=== PATIENT | male | born 1950 | race African-American/Black ===

== ENCOUNTER 2017-03-02 21:10 | Inpatient (IN) | payer MEDICARE, MEDICAID ==
[~2017-03-02] VITALS: Ht 139.7 cm; Wt 101.9 kg
[2017-03-02 22:29] LABS: BASOPHILS 0.3 % (0-2); EOSINOPHILS 2.2 % (0-7); HEMATOCRIT 34.8 % (42.0-54.0); HEMOGLOBIN 11.2 g/dL (13.5-17.5); IMMATURE GRANULOCYTES 0.7 % (0-5); LYMPHOCYTES 12.9 % (15-50); MCH 27.9 pg (26.0-34.0); MCHC 32.2 g/dL (31.0-37.0); MCV 86.6 fL (80.0-100.0); MEAN PLATELET VOLUME 10.8 fL (7.4-10.4); NEUTROPHILS 77.9 % (40-80); PLATELET COUNT 295 10x3/uL (130-400); RBC 4.02 10x6/uL (4.20-6.10); RDW 16.7 % (11.5-14.5); WBC 11.1 10x3/uL (4.8-10.8)
[2017-03-02 22:42] LABS: ALBUMIN 2.8 g/dL (3.4-5.0); ANION GAP 16.7 mmol/L (8-16); BILIRUBIN - TOTAL 0.7 mg/dL (0.2-1.3); CALCIUM 8.7 mg/dL (8.5-10.1); CARBON DIOXIDE 26.7 mmol/L (21.0-32.0); CREATININE - SERUM 4.4 mg/dL (0.6-1.3); POTASSIUM - SERUM 3.4 mmol/L (3.5-5.1); PROTEIN - SERUM 7.3 g/dL (6.4-8.2)
[2017-03-03] VITALS (44 sets, daily range): BP systolic 70–114; BP diastolic 40–76; Ht 139.7 cm; Wt 101.9 kg
--- NOTE | 2017-03-03 03:30 | NUR ---
REASSESSMENT COMPLETE PER FLOW SHEET. VSS. NO NEW CHANGES LAB AT BEDSIDE PT REFUSES. WILL CONTINUE TO MONITOR
[2017-03-03] MEDS ORDERED: REMERON15 MG PO (04:45)
[2017-03-03] MEDS ORDERED: MAG-OX 400 MG400 MG PO (04:46)
[2017-03-03] MEDS ORDERED: MIDODRINE HCL10 MG PO (04:48)
[2017-03-03] MEDS ORDERED: NEPHRO-VITE RX1 TAB PO (04:49)
[2017-03-03] MEDS ORDERED: COMBIGAN OPHT DR5 ML EACH EYE (04:50)
[2017-03-03] MEDS ORDERED: PRED FORTE5 ML RIGHT EYE (04:50)
[2017-03-03] MEDS ORDERED: GABAPENTIN100 MG PO (04:52)
[2017-03-03] MEDS ORDERED: LEVOTHYROXINE100 MCG PO (04:53)
[2017-03-03] MEDS ORDERED: BAYER CHEWABLE81 MG PO (04:54)
[2017-03-03] MEDS ORDERED: PRED FORTE5 ML EACH EYE (04:56)
[2017-03-03] MEDS ORDERED: PROTONIX40 MG PO (04:57)
[2017-03-03] MEDS ORDERED: ASCORBIC ACID500 MG PO (04:58)
[2017-03-03] MEDS ORDERED: LOPRESSOR25 MG PO (04:59)
[2017-03-03] MEDS ORDERED: COLACE100 MG PO (05:01)
[2017-03-03] MEDS ORDERED: ATARAX 25 MG TA25 MG PO (05:01)
[2017-03-03] MEDS ORDERED: ZOFRAN4 MG PO (05:02)
[2017-03-03] MEDS ORDERED: BANOPHEN25 MG PO (05:04)
[2017-03-03] MEDS ORDERED: IMODIUM2 MG PO (05:04)
[2017-03-03] MEDS ORDERED: NORCO 7.5/325 T1 TA1 PO (05:05)
[2017-03-03] MEDS ORDERED: ACETAMINOPHEN325 MG PO (05:06)
[2017-03-03 06:09] LABS: HEMATOCRIT 32.2 % (42.0-54.0); HEMOGLOBIN 10.5 g/dL (13.5-17.5); MCH 27.9 pg (26.0-34.0); MCHC 32.6 g/dL (31.0-37.0); MCV 85.4 fL (80.0-100.0); MEAN PLATELET VOLUME 10.3 fL (7.4-10.4); NEUTROPHILS 84.8 % (40-80); PLATELET COUNT 259 10x3/uL (130-400); RBC 3.77 10x6/uL (4.20-6.10); RDW 17.5 % (11.5-14.5); WBC 11.5 10x3/uL (4.8-10.8)
[2017-03-03 06:25] LABS: ANION GAP 21.3 mmol/L (8-16); CALCIUM 8.1 mg/dL (8.5-10.1); CREATININE - SERUM 4.5 mg/dL (0.6-1.3); POTASSIUM - SERUM 3.3 mmol/L (3.5-5.1)
--- NOTE | 2017-03-03 14:49 | NUR ---
DIALYSIS TX COMPLETE. PT AAO, VERBAL. 3HR RUN ONLY GOT 711CC OFF PT EXTREMELY HYPOTENSIVE. 2 ALBUMIN GIVEN DURING TX AND HIGHEST B/P 89/57, HR 69. NO COMPLAINTS.
--- NOTE | 2017-03-03 19:00 | NUR ---
1900: Pt repositioned for comfort at this time. Pt left arm and right lower extrem (BKA) elevated off bed with pillow supports.
--- NOTE | 2017-03-03 20:30 | NUR ---
2030: Pt SBP 70-80 with MAP <60mmHG. Repositioned NIBP at this time. Pt state that he has pain in his right lower extrem. Provided PRN RX as per EMAR.
--- NOTE | 2017-03-03 21:00 | NUR ---
2100: Pt SBP cont's decreased at this time. Levophed gtt restarted and will titrate as per orders.
--- NOTE | 2017-03-03 21:30 | NUR ---
2129: Pt nauseated and vomitted approx 200cc of clear liquid with food particles. Oral care and complete bed and linen change done at this time. Pt states he feels a little better afterwards. Pt remains Paced on CM 70's with SBP 80's. Levophed gtt cont's as per IV gtts.
--- NOTE | 2017-03-03 22:45 | NUR ---
2245: Pt requested to move at this time. Pt repositioned for comfort. Pt has small brown semi-solid BM. Pt linen changed and again repositioned for comfort at this time.
[2017-03-04] VITALS (70 sets, daily range): BP systolic 71–151; BP diastolic 47–87
--- NOTE | 2017-03-04 02:00 | NUR ---
0200: Pt resting with eyes closed at this itme. Pt remains Paced on CM with SBP 80-90, MAP >60 at this time with Levophed as per IV gtts.
--- NOTE | 2017-03-04 03:40 | NUR ---
0340: Pt repositioned for comfort with right stump off bed with pillow support as per request. Pt remains on Levophed gtt at 5 mcg's.
[2017-03-04 03:47] LABS: BASOPHILS 0.1 % (0-2); EOSINOPHILS 0.1 % (0-7); HEMATOCRIT 30.8 % (42.0-54.0); IMMATURE GRANULOCYTES 1.6 % (0-5); LYMPHOCYTES 9.6 % (15-50); MCH 28.1 pg (26.0-34.0); MCHC 32.5 g/dL (31.0-37.0); MCV 86.5 fL (80.0-100.0); MEAN PLATELET VOLUME 10.6 fL (7.4-10.4); MONOCYTES 7.3 % (2-11); NEUTROPHILS 81.3 % (40-80); PLATELET COUNT 293 10x3/uL (130-400); RBC 3.56 10x6/uL (4.20-6.10); RDW 16.7 % (11.5-14.5); WBC 14.5 10x3/uL (4.8-10.8)
[2017-03-04 03:57] LABS: ANION GAP 22.5 mmol/L (8-16); CALCIUM 8.4 mg/dL (8.5-10.1); CARBON DIOXIDE 22.1 mmol/L (21.0-32.0); CREATININE - SERUM 4.1 mg/dL (0.6-1.3); POTASSIUM - SERUM 3.6 mmol/L (3.5-5.1)
--- NOTE | 2017-03-04 20:00 | NUR ---
2000: Pt resting on right side. Pt is blind, pt oriented to person, place, and time. Pt denies pain, but did assist with elevating right BKA stump with pillow support for comfort. Pt S1S2 regular showing Paced on CM 70's. SBP 70-80 mmHG. Continue to titrate Levophed gtt as per orders. BS hypoactive x4 and ABD feels tight to touch and distended. Pt denies nausea or vomitting at this time, but reports a decreased appetite. Pt right arm fistula with dressing intact. No bleeding or oozing seen.
--- NOTE | 2017-03-04 22:45 | NUR ---
2245: Pt c/o nausea at this time. No vommitting. Pt HOB raised to 45 degrees. Provided patient with emesis bag and cool cloth to forehead.
--- NOTE | 2017-03-04 23:00 | NUR ---
2300: Pt infusion pump continues to alarm with occulusion to left IJ IV. IV easy to flush and remains patent with no leakage detected. New IV lines and connections completed at this time. Left neck IV redressed at this time and secured. Pt remains on Levophed and NS as per IV gtts.
[2017-03-05] VITALS (38 sets, daily range): BP systolic 78–108; BP diastolic 48–75
[2017-03-05 05:37] LABS: BASOPHILS 0.3 % (0-2); EOSINOPHILS 1.2 % (0-7); HEMATOCRIT 31.3 % (42.0-54.0); HEMOGLOBIN 10.2 g/dL (13.5-17.5); LYMPHOCYTES 14.7 % (15-50); MCH 27.8 pg (26.0-34.0); MCHC 32.6 g/dL (31.0-37.0); MCV 85.3 fL (80.0-100.0); MEAN PLATELET VOLUME 10.8 fL (7.4-10.4); MONOCYTES 19.6 % (2-11); NEUTROPHILS 63.2 % (40-80); RBC 3.67 10x6/uL (4.20-6.10); RDW 16.8 % (11.5-14.5); WBC 11.2 10x3/uL (4.8-10.8)
[2017-03-05 05:44] LABS: PLATELET COUNT 223 10x3/uL (130-400)
--- NOTE | 2017-03-05 06:00 | NUR ---
0600: Pt with small rob-solid BM. Complete bath and linen change done at this time. Pt repositioned for comofort. Pt buttocks with small red area. Butt cream applied. Pt right stump on pillow support. Pt remains Paced on CM with SBP 90's. Levophed remains off at this time.
[2017-03-05 06:04] LABS: ANION GAP 18.5 mmol/L (8-16); CALCIUM 8.6 mg/dL (8.5-10.1); CARBON DIOXIDE 23.8 mmol/L (21.0-32.0); CREATININE - SERUM 4.6 mg/dL (0.6-1.3); POTASSIUM - SERUM 3.3 mmol/L (3.5-5.1); VANCOMYCIN - RANDOM 15.6 ug/mL (10.0-20.0)
--- NOTE | 2017-03-05 19:41 | NUR ---
REPORT RECIEVED. ASSESSMENT COMPLETE PER FLOW SHEET. VSS. PT SLEEPING COMFORTABLY. WILL CONTINUE TO MONITOR
--- NOTE | 2017-03-05 21:10 | NUR ---
MEDS ADM WIHTOUT DIFFICULTY. COMPLETE BB LINEN CHANGE ADM. NEEDS MET. VSS. WILL CONTINUE TO MONITOR
--- NOTE | 2017-03-05 23:36 | NUR ---
REASSESSMENT COMPLETE PER FLOW SHEET. VSS. NO NEW CHNAGES. WILL CONTINUE TO MONITOR
[2017-03-06] VITALS (62 sets, daily range): BP systolic 70–118; BP diastolic 33–84
--- NOTE | 2017-03-06 01:10 | NUR ---
PT RESTING AT THIS TIME, NO NEEDS NOTED, VSS, CALL LIGHT IN REACH
--- NOTE | 2017-03-06 03:15 | NUR ---
REASSESSMENT COMPLETE, NO CHANGES NOTED, PT RESTING COMFORTABLY AT THIS TIME, NO NEEDS NOTED, WILL CON'T TO MONITOR
[2017-03-06 04:17] LABS: BASOPHILS 0.2 % (0-2); EOSINOPHILS 0.9 % (0-7); HEMATOCRIT 32.5 % (42.0-54.0); HEMOGLOBIN 10.8 g/dL (13.5-17.5); IMMATURE GRANULOCYTES 1.4 % (0-5); LYMPHOCYTES 11.4 % (15-50); MCH 28.4 pg (26.0-34.0); MCHC 33.2 g/dL (31.0-37.0); MCV 85.5 fL (80.0-100.0); MEAN PLATELET VOLUME 10.6 fL (7.4-10.4); MONOCYTES 17.3 % (2-11); NEUTROPHILS 68.8 % (40-80); PLATELET COUNT 235 10x3/uL (130-400); RDW 16.8 % (11.5-14.5)
[2017-03-06 04:22] LABS: WBC 14.8 10x3/uL (4.8-10.8)
[2017-03-06 04:54] LABS: ANION GAP 22.7 mmol/L (8-16); CALCIUM 8.4 mg/dL (8.5-10.1); CARBON DIOXIDE 20.2 mmol/L (21.0-32.0); CREATININE - SERUM 5.3 mg/dL (0.6-1.3); VANCOMYCIN - RANDOM 17.5 ug/mL (10.0-20.0)
[2017-03-06 04:55] LABS: POTASSIUM - SERUM 3.9 mmol/L (3.5-5.1)
--- NOTE | 2017-03-06 05:15 | NUR ---
LARGE BM AT THIS TIME, PARTIAL LINEN CHANGE
--- NOTE | 2017-03-06 07:00 | NUR ---
REPORT RECIEVED FROM OFF GOING NURSE. SEE ASSESSMENT IN FLOW SHEET. PT BLIND. ABLE TO COLLOW COMMANDS BUT CONFUSED. RIGHT BKA AND L AKA NOTED. FEMORAL PULSES PALPABLE. VSS. BREATHING SHALLOW BUT NORMAL. CALL LIGHT IN REACH. WILL CONT POC
--- NOTE | 2017-03-06 10:06 | NUR ---
Nutrition follow-up: Diet: Renal ADA consistent CHO PO intake 25-50% of meals Labs reviewed Wt: 219# +BM Will provide food choices with selective menus and honor food preferences within diet restrictions. RDN following.
--- NOTE | 2017-03-06 10:36 | NUR ---
LEVOPHED STARTED PER ORDRES FOR BP OF 67/41.
--- NOTE | 2017-03-06 10:39 | NUR ---
* Is the patient Alert and Oriented? Yes 0 * Preadmission Environment Marketing Automation Manager [facility] 0 * Facility Name [facility] 0 * ADLs Partial Dependent 0 * Partial ADLs (Assistance needed) Ambulation Bathing Dressing Medication Management Toileting Transfers 0 * Equipment Hospital Bed Wheelchair 0 * Additional services required to return to the preadmission environment? No 0 * Can the patient safely return to the preadmission environment? Yes 0 * Has this patient been hospitalized within the prior 30 days at any hospital? No Patient Name: MARITO THORNTON Admission Status: ER Accout number: [id number] Admission Date: 03-02-2017 : 1950 Admission Diagnosis:PNEUMONIA, UNSPECIFIED ORGANISM Attending: MAGGI KEYS Current LOS: 4 Planned Disposition: Nursing Facility [facility] Primary Insurance: MEDICARE A & B Discharge Planning Comments: Patient is a oil heaterman care resident at [facility] in [place]. He primarily uses a Erika Chair, but is able to sit up in a wheel chair. He goes to dialysis at [facility] in [place] on MWF. He requires assistance with all ADL's. Spoke with Lorraine at facility - she states patient will likely return to a oil heaterman care bed - she states patient has a hx of not being compliant with physical therapy. CM will follow & assist as needed. Head Of Measurement & Insights: Payton Gomez
--- NOTE | 2017-03-06 10:52 | NUR ---
LEVOPHED INCREASE PER ORDRES. CURRENTLY AT 70/39 AT 3MCG/KG/MIN.
--- NOTE | 2017-03-06 11:45 | NUR ---
AT BED SIDE. SHE FEED PT HIS LUNCH. HE ATE APPROXIMETLY 50% OF MEAL. NO S/SX OF DISTRESS/DISCOMFORT NOTED. VSS. REMAINS ON LEVOPHED. PT REPOSITIONED WILL CONT POC.
--- NOTE | 2017-03-06 13:30 | NUR ---
PT HAD MEDIUM BM. LOOSE AND SLIGHTY ORANGE IN COLOR. PERICARE PREFORMED AND NEW LINES TO BED. BUTTPASTE APPLIED. REPSOSTIONED FOR COMFORT. CALL LIGHT IN REACH. WILL CONT POC.
--- NOTE | 2017-03-06 15:00 | NUR ---
ME REMAINS RESTING WITH EYES CLOSED WITH 0 S/SX OF DISTRESS/DISCOMFORT NOTED. BREATHING NORMAL AND UNLABORED. VSS. REMAINS ON LEVOPHED. CALL LIGHT IN REACH. WILL CONT POC
--- NOTE | 2017-03-06 16:45 | NUR ---
ASSISTED PT WITH HIS MEALS. SPOON FEED BITES. ATE APPROXIMETLY 30%. STATED THAT HE WASNT HUNGRY. WILL CONT POC.
--- NOTE | 2017-03-06 18:45 | NUR ---
REPORT GIVEN TO ONCOMING RN. VSS. BREATHING NORMAL AND UNLABORED. WILL CONT POC
--- NOTE | 2017-03-06 19:15 | NUR ---
REPORT RECIEVED, SHIFT ASSESSMENT COMPLETE, PT IS ALERT AND ORIENTED, ON RA WITH 97% O2 SAT, PATENT RIGHT FISTULA HD IN PROGRESS, S1S2, PACEMAKER NOTED, ABODMEN IS SOFT AND ROUND WITH ACTIVE BS, PT ANURIC, B/L LOWER AMPUTATION, DENIES ANY NEEDS OR WANTS, CALL LIGHT IN REACH, WILL CON'T TO MONITOR
--- NOTE | 2017-03-06 21:00 | NUR ---
HS STILL IN PROGRESS, NO NEEDS NOTED, WILL CON'T TO MONITOR
--- NOTE | 2017-03-06 22:30 | NUR ---
HD COMPLETE, 3L REMOVED, WILL CON'T TO MONITOR
--- NOTE | 2017-03-06 23:05 | NUR ---
REASSESSMENT COMPLETE, NO CHANGES NOTED, REPOSITIONED FOR COMFORT, WILL CON'T TO MONITOR
[2017-03-07] VITALS (26 sets, daily range): BP systolic 82–115; BP diastolic 51–71
--- NOTE | 2017-03-07 01:15 | NUR ---
REPOSITIONED FOR COMFORT, NO OTHER NEEDS NOTED, WILL CON'T TO MONITOR
--- NOTE | 2017-03-07 02:00 | NUR ---
LEVOPHED OFF AT THIS TIME,
--- NOTE | 2017-03-07 03:15 | NUR ---
REASSESSMENT COMPLETE, NO CHANGES NOTED, PT RESTING AT THIS TIME, WILL CON'T TO MONITOR
--- NOTE | 2017-03-07 05:15 | NUR ---
REPOSITIONED FOR COMFORT, VSS, CALL LIGHT IN REACH
--- NOTE | 2017-03-07 07:00 | NUR ---
REPORT RECEIVED FROM OFF GOING RN. SEE ASSESSMENT IN FLOW SHEET. PT OFF PRESSORS. VSS. PT BLIND. BLE AMBUTATIONS. FEMORAL PULSES PALPABLE. RADIAL PULSES PAPABLE BUT WEAK. A&OX4. ASSISTED PT WITH BREAKFAST BY SPOON FEEDING HIM. PT HAD A BED BATH AFTER BREAKFAST. SMALL STOOL NOTED. NEW BED LINENS TO BED. BREATHING NORMAL AND UNLABORED. DENIES PAIN AT THIS TIME. NO S/SX OF DISTRESS/DISCOMFORT NOTED. CALL LIGHT IN REACH.
--- NOTE | 2017-03-07 07:30 | NUR ---
MAY TRANSFER TO [facility] PER DR MCBRIDE.
[2017-03-07 08:38] LABS: BASOPHILS 0.2 % (0-2); EOSINOPHILS 0.4 % (0-7); HEMATOCRIT 30.1 % (42.0-54.0); LYMPHOCYTES 12.7 % (15-50); MCH 28.1 pg (26.0-34.0); MCHC 33.2 g/dL (31.0-37.0); MCV 84.6 fL (80.0-100.0); MEAN PLATELET VOLUME 10.3 fL (7.4-10.4); MONOCYTES 16.4 % (2-11); NEUTROPHILS 69.3 % (40-80); PLATELET COUNT 216 10x3/uL (130-400); RBC 3.56 10x6/uL (4.20-6.10); RDW 16.8 % (11.5-14.5); WBC 13.7 10x3/uL (4.8-10.8)
[2017-03-07 09:01] LABS: CALCIUM 8.3 mg/dL (8.5-10.1); CREATININE - SERUM 4.2 mg/dL (0.6-1.3)
[2017-03-07 09:05] LABS: ANION GAP 18.2 mmol/L (8-16); POTASSIUM - SERUM 3.2 mmol/L (3.5-5.1)
[2017-03-07 10:41] LABS: VANCOMYCIN - RANDOM 27.8 ug/mL (10.0-20.0)
--- NOTE | 2017-03-07 11:00 | NUR ---
NO CHANGE IN PTS CONDITION FROM PREVIOUS ASSESSMENT. PT REFUSED LUNCH. HE ATE A CUP OF JELLO. PT DENIES PAIN. NO NEEDS VOICED AT THIS TIME. HAVE BEEN TURNING AND PROPING PT SIDE WITH A PILLOW Q2H. CALL LIGHT IN REACH. WILL CONT POC
--- NOTE | 2017-03-07 15:00 | NUR ---
NO CHANGES WITH PTS CONDTION. STILL WAITNIG ON MED2 BED. REPOSITIONED Q 2 HOURS WITH PILLOW. DENIES PAIN AT THIS TIME. BREATHING NORMAL AND UNABORED. WILL CONT POC.
--- NOTE | 2017-03-07 17:00 | NUR ---
PT REFUSED DINNER. OFFERED JELLO. PT WAS SPOON FED 1 CUP OF JELLO. DENIES PAIN/DISCOMFORT. NO SOB NOTED. CALL LIGHT IN REACH. WILL CONT POC
--- NOTE | 2017-03-07 19:00 | NUR ---
REPORT RECIEVED, SHIFT ASSESSMENT COMPLETE, PT IS ALERT AND ORIENTED, ON RA WITH 97% O2 SAT. LUNGS CLEAR IN B/L UPPER LOBES, DIMINISHED IN B/L LOWER LOBES, S1S2, CM-PACEMAKER, PATENT LEFT EJ AND LEFT HAND PIV...SEE IV FLOW SHEET..ABDOMEN IN SOFT AND ROUND WITH ACTIVE BS, PT ANURIC, B/L LOWER AMPUTATION, ALL OTHER PPP, VSS, CALL LIGHT IN REACH
--- NOTE | 2017-03-07 21:00 | NUR ---
NO VISITORS AT THIS TIME, WILL CON'T TO MONITOR
--- NOTE | 2017-03-07 23:15 | NUR ---
PT RESTING AT THIS TIME, DENIES ANY NEEDS OR WANTS, VSS, CALL LIGHT IN REACH
--- NOTE | 2017-03-08 01:15 | NUR ---
NO NEEDS NOTED AT THIS TIME, WILL CON'T TO MONITOR
[2017-03-08 03:00] VITALS: BP 85/62
--- NOTE | 2017-03-08 03:30 | NUR ---
REPOSITIONED FOR COMFORT, NO OTHER NEEDS NOTED, WILL CON'T TO MONITOR
[2017-03-08 04:00] VITALS: BP 100/69
[2017-03-08 04:17] LABS: BASOPHILS 0.3 % (0-2); EOSINOPHILS 1.1 % (0-7); HEMATOCRIT 28.4 % (42.0-54.0); HEMOGLOBIN 9.4 g/dL (13.5-17.5); LYMPHOCYTES 11.1 % (15-50); MCHC 33.1 g/dL (31.0-37.0); MCV 84.5 fL (80.0-100.0); MEAN PLATELET VOLUME 10.6 fL (7.4-10.4); MONOCYTES 10.5 % (2-11); PLATELET COUNT 244 10x3/uL (130-400); RBC 3.36 10x6/uL (4.20-6.10); RDW 17.5 % (11.5-14.5); WBC 11.8 10x3/uL (4.8-10.8)
[2017-03-08 04:48] LABS: ANION GAP 17.6 mmol/L (8-16); CALCIUM 7.8 mg/dL (8.5-10.1); CREATININE - SERUM 4.7 mg/dL (0.6-1.3); POTASSIUM - SERUM 3.6 mmol/L (3.5-5.1); VANCOMYCIN - RANDOM 24.9 ug/mL (10.0-20.0)
[2017-03-08 05:00] VITALS: BP 92/68
--- NOTE | 2017-03-08 05:15 | NUR ---
REPOSITIONED FOR COMFORT, WILL CON'T TO MONITOR
[2017-03-08 07:00] VITALS: BP 96/68
--- NOTE | 2017-03-08 07:00 | NUR ---
PT REPORT REC'D, PT CARE ASSUMED. PT AAOX4 SITTING UP IN BED, DENIES ANY PAIN UPON ASSESSMENT. PT IS BLIND IN BOTH EYES, TOTAL ASSIST. BILAT LOWER EXTREMITY AMPUTATIONS. RESERVE RIGHT ARM, FISUTLA CDI, BRUIT AND THRILL PRESENT. LEFT JUGULAR PIV, DRESSING CDI, S/L'ED. LEFT HAND PIV WITH NS AT 10, DRESSING CDI, NO SIGNS OF INFILTRATION. SHIFT ASSESSMENT COMPLETED, SEE FLOW SHEET. ROOM FREE OF CLUTTER, CALL LIGHT IN REACH, BED LOCKED IN LOWEST POSITION, BED ALARM ACTIVE, WILL CONTINUE TO MONITOR PT.
--- NOTE | 2017-03-08 09:03 | NUR ---
SAT PT UP TO ASSIST IN FEEDING, PT REQUESTING TOAST AND OATMEAL, CALLED FOOD AND NUTRTITION WITH PTS REQUEST.
--- NOTE | 2017-03-08 10:13 | NUR ---
PT REPORT CALLED TO J[facility] HENDRICKS, PT TO TRANSFER TO ROOM 2116 VIA BED.
--- NOTE | 2017-03-08 10:25 | NUR ---
Nutrition follow-up: Diet: Renal ADA consistent CHO PO intake ~50% of meals labs reviewed Wt: 224# +BM PO intake fair at this time RDN will order Nepro with breakfast, dinner RDN following.
[2017-03-08 11:00] VITALS: BP 113/77
--- NOTE | 2017-03-08 11:35 | NUR ---
TRANSFER FROM ICU BY BED. OREINTED TO ROOM. CALL LIGHT IN REACH. WILL CONT. PLAN OF CARE.
--- NOTE | 2017-03-08 12:46 | NUR ---
LEAVING FOR DIALYSIS BY BED.
--- NOTE | 2017-03-08 19:49 | NUR ---
PT LYING IN BED, AWAKE, ALERT, WEAK, SOFT SPOKEN, DENIES ANY NEEDS. WILL CONTINUE TO MONITOR CLOSELY. BED LOW, CALL LIGHT IN REACH, SIDE RAILS X 2, HOB 30 DEGREES.
[2017-03-08 20:00] VITALS: BP 104/64
[2017-03-09 00:21] VITALS: BP 88/55
[2017-03-09 04:58] VITALS: BP 82/54
--- NOTE | 2017-03-09 07:35 | NUR ---
ASSESSMENT COMPLETED. TELEMERTY SHOWS SR 69. IV TO LEFT EJ AND LEFT HAND. . LEFT SIDE FLACID. PT HAS A LEFT AKA AND A RIGHT BKA. PT IS BLIND. RESERVE RIGHT ARM. SR UP WITH CALL LIGHT IN REACH
[2017-03-09 09:15] VITALS: BP 87/57
[2017-03-09 11:53] VITALS: BP 110/56
--- NOTE | 2017-03-09 13:51 | NUR ---
PT ASLEEP AT PRESENT. MONITOR SHOWS PACED AT 69
[2017-03-09 16:53] VITALS: BP 87/57
--- NOTE | 2017-03-09 18:21 | NUR ---
REPOSITIONED FOR COMFORT. DENIES ANY NEEDS. WILL MONITOR. CALL LIGHT IN REACH WITH SR UP
--- NOTE | 2017-03-09 19:35 | NUR ---
PT RESTING COMFORTABLY, ASKING FOR ICE WATER, NO OTHER NEEDS. CONTINUE TO MONITOR CLOSELY. BED LOW, CALL LIGHT IN REACH, SIDE RAILS X 2, HOB 30 DEGREES.
--- NOTE | 2017-03-09 20:24 | DS ---
PATIENT:MARITO THORNTON :[birth year] MEDICAL RECORD: [id number] DISCHARGE SUMMARY ADMISSION DATE: 03/02/17 DISCHARGE DATE: This is a 66-year-old gentleman with a clotted access and pneumonia. He was sent over from the [facility] and had surgical intervention of his access. He will continue dialysis in [place]. He has been wanting to go home the last couple of days, but does have chronic hypotension. He is not familiar to us. He will continue Levaquin for his pneumonia and I will call his dialysis unit. We will continue his vancomycin for another week as well. He will continue ProAmatine. We will discuss his condition with the dialysis team in [place]. No changes in his medications other than Levaquin and vancomycin. Continue with a renal diet and activity is in the fpc. Cultures have been reviewed and he had Staphylococcus capitis from 03/02/2017 blood culture. We will likely treat for 2 more weeks. Stable on discharge. Greater than 30 minutes spent. TRANSINT:[id number] Voice Confirmation ID: [id number] DOCUMENT ID: [id number] RAVI MCBRIDE MD at 2024 CC: [id number] DICTATION DATE: 03/09/17 0734 REFINERY OPERATOR LIGHT ENDS RECOVERY: 03/09/17 1149 ADM IN [facility] [address] [place] [address]
[2017-03-09 22:42] VITALS: BP 80/50
[2017-03-10 05:19] VITALS: BP 83/54
--- NOTE | 2017-03-10 05:55 | NUR ---
PT RESTING COMFORTABLY, DENIES ANY NEEDS AT THIS TIME. PT HAS HAD A BED BATH, LINEN AND GOWN CHANGE. RT BKA IS ELEVATED ON A PILLOW. CONTINUE TO MONITOR CLOSELY.
--- NOTE | 2017-03-10 07:20 | NUR ---
REPORT RECEIVED ON PATIENT. MORNING ROUNDS MADE. PATIENT IS LAYING IN BED WITH HIS EYES CLOSED. CHEST RISES AND FALLS EQUALLY BILAT. NAD NOTED. CPOC.
--- NOTE | 2017-03-10 09:56 | NUR ---
WENT TO GIVE MORNING MEDS, PATIENT WAS TAKEN TO DIALYSIS. UNABLE TO GIVE MEDS. CPOC.
[2017-03-10 10:27] VITALS: BP 88/54
--- NOTE | 2017-03-10 11:40 | NUR ---
Patient Name: MARITO THORNTON Encounter No: [id number] : 1950 Primary Insurance: MEDICARE A & B Anticipated DC Date: Planned Disposition: Nursing Facility [facility] Cert External Planned Provider: [facility], MEDICARE REHAB BED DCP follow-up note: CM RECEIVED DISCHARGE ORDER, SPOKE TO PT IN DIALYSIS UNIT; PT REPORTS HE WILL RETURN TO [facility] AND WOULD LIKE THERAPY SERVICES IF AVAILABLE. PT REPORTS HIS SPOUSE IS IN [place] AND HE WILL BE GOING BACK TO THE FACILITY ALONE AND NEEDS MEDICAID TRANSPORT TO ASSOCIATE PROFESSOR OF ECONOMICS PT.PT HAS WHEELCHAIR HERE. IMPORTANT MESSAGE FROM MEDIC[employer] PROVIDED AND EXPLAINED. CM CALLED [facility] AT [phone], SPOKE TO LADI WHO REPORTS PT WILL RETURN TO SKILLED BED LONG HE WANTS TO DO THERAPY. LADI ASKED TO ARRANGE MEDICAID TRANSPORTATION SERVICES. LALITO CALLED MEDICAID TRANSPORTATION, , ADVISED BY OLESYA THAT PT WAS GUAMAN RIDE FROM THE DETENTION AND THE DETENTION WOULD HAVE TO ARRANGE TRANSPORT BACK. CM CALLED LADI, NOTIFIED OF ABOVE. LADI WILL ARRANGE VAN ASSOCIATE PROFESSOR OF ECONOMICS AT ABOUT 2:00PM TODAY. CM NOTIFIED RN INTERNSHIP NURSE. CM FAXED DISCHARGE INFORMATION TO [facility] AT [phone]. CM CALLED PT'S SPOUSE, LETICIA THORNTON AT LISTED EMERGENCY CONTACT NUMBER, , NUMBER WAS DISCONNECTED. NURSE REPORT TO BE CALLED TO [facility] AT [phone]. MEDICAID TRANSPORT VAN TO ASSOCIATE PROFESSOR OF ECONOMICS PT AT ABOUT 2:00PM TODAY. Lei Steele, CASE MANAGEMENT
--- NOTE | 2017-03-10 13:54 | NUR ---
BACK FROM DIALYSIS. GETTING FOR DISCHARGE.
--- NOTE | 2017-03-10 14:00 | NUR ---
RECEIVED REPORT FROM FRANKLYN IN DIALYSIS @ 1300. VS STABLE: BP 92/55, P 70, T 97.6. STATES THEY ONLY PULLED 400ML TODAY. PATIENT TRANSPORTED VIA STRETCHER FROM DIALYSIS TO ROOM. PATIENT CLEANED UP, IV REMOVED FROM LEFT NECK, CATHETER TIP INTACT. IV REMOVED FROM LEFT HAND, CATHETER TIP INTACT. WAS THEN DRESSED, AND TRANSFERED TO PERSONAL WHEELCHAIR. FAMILY IN ROOM, WAITING ON TRANSPORTATION.
--- NOTE | 2017-03-10 14:30 | NUR ---
REPORT GIVEN TO LADI AT [place]. PATIENT TRANSPORTED TO [facility] VIA WHEELCHAIR.
== END 2017-03-10 15:10 | DRG 871 ==
LOC: D.ER 21:10 → D.ICU 22:47 → D.M2 03-08 11:00
PROVIDERS: Internal Medicine; Physician Assistant Medical; ADMIT Internal Medicine Nephrology
PROC: 5A1D70Z Performance of Urinary Filtration, Intermittent, Less than 6 Hours Per Day (ICD-10-PCS; principal; 2017-03-03)
DX: A41.9 Sepsis, unspecified organism (principal); J18.9 Pneumonia, unspecified organism; N18.6 End stage renal disease; I12.0 Hypertensive chronic kidney disease with stage 5 chronic kidney disease or end stage renal disease; Y83.8 Other surgical procedures as the cause of abnormal reaction of the patient, or of later complication, without mention of misadventure at the time of the procedure; E11.22 Type 2 diabetes mellitus with diabetic chronic kidney disease; Z99.2 Dependence on renal dialysis; J44.9 Chronic obstructive pulmonary disease, unspecified; K21.9 Gastro-esophageal reflux disease without esophagitis; I95.9 Hypotension, unspecified; D63.1 Anemia in chronic kidney disease; Z95.0 Presence of cardiac pacemaker; Z89.511 Acquired absence of right leg below knee; Z89.612 Acquired absence of left leg above knee